=== PATIENT | male | born 1990 | race Caucasian/White ===

== ENCOUNTER 2019-04-23 17:08 | Emergency (ER) | payer OTHER ==
[~2019-04-23] VITALS: Ht 167.6 cm; Wt 87.5 kg
[2019-04-23 17:29] VITALS: BP 120/83; Ht 167.6 cm; Wt 87.5 kg
== END 2019-04-23 20:33 | disposition left against medical advice (07) ==
LOC: ED 17:08
DX: Z53.21 Procedure and treatment not carried out due to patient leaving prior to being seen by health care provider (principal)